=== PATIENT | male | born 1970 | race Two or more races ===

== ENCOUNTER 2020-04-14 15:17 | Emergency (ER) | payer OTHER ==
[~2020-04-14] VITALS: Ht 170.2 cm; Wt 90.7 kg
--- NOTE | 2020-04-14 15:21 | NUR ---
came inf or R hand pain and swelling s/p punching wooden stick, to ER bed 9, hooked to monitor, provided w warm blanket, awaiting mD turner.
--- NOTE | 2020-04-14 15:25 | NUR ---
dr Katz at bedside
--- NOTE | 2020-04-14 15:29 | NUR ---
BUSINESS ANALYSIS SPECIALIST AT BEDSIDE FOR XRAY.
[2020-04-14] MEDS ORDERED: ACETAMINOPHEN ES 500 MG TABLET PO ONE (15:30)
[2020-04-14] MEDS ORDERED: ACETAMINOPHEN ES 500 MG TABLET ONE (15:34)
--- NOTE | 2020-04-14 17:17 | NUR ---
Patient discharged to home in stable condition. Written and verbal after care instructions given. Patient verbalizes understanding of instruction.
--- NOTE | 2020-04-14 17:17 | NUR ---
SPLINTING DONE BY NEUROLOGY NURSE.
[2020-04-14 17:19] VITALS: BP 131/74
== END 2020-04-14 17:22 | disposition home or self-care (01) ==
LOC: ER 15:21
DX: S62.394A Other fracture of fourth metacarpal bone, right hand, initial encounter for closed fracture (principal); S62.396A Other fracture of fifth metacarpal bone, right hand, initial encounter for closed fracture; S60.221A Contusion of right hand, initial encounter; W22.8XXA Striking against or struck by other objects, initial encounter; Y93.71 Activity, boxing; Y92.89 Other specified places as the place of occurrence of the external cause; Y99.8 Other external cause status
CPT/HCPCS: 73110; 73130-TC

== ENCOUNTER 2021-02-04 16:38 | Emergency (ER) | payer OTHER ==
[~2021-02-04] VITALS: Ht 177.8 cm; Wt 77.1 kg
[2021-02-04 16:40] VITALS: BP 144/102
[2021-02-04] MEDS ORDERED: DIVA500T2 PO (17:13)
[2021-02-04] MEDS ORDERED: TRAZ150T75 PO (17:13)
[2021-02-04] MEDS ORDERED: ARIP15TA3 PO (17:13)
--- NOTE | 2021-02-04 17:24 | NUR ---
Patient given written and verbal discharge instructions. Patient verbalizes understanding of instructions. Patient is ambulatory with steady gait. Refuses offer of senior care placement. Patient given list of available shelters in surrounding area.
== END 2021-02-04 17:26 | disposition home or self-care (01) ==
LOC: ER 16:46
DX: Z76.0 Encounter for issue of repeat prescription (principal); Z59.0 Homelessness; Z79.899 Other long term (current) drug therapy

== ENCOUNTER 2022-07-15 11:14 | Emergency (ER) | payer OTHER ==
[~2022-07-15] VITALS: Ht 177.8 cm; Wt 90.7 kg
[~2022-07-15 11:14] MED LIST: ARIP15TA3 PO; DIVA500T2 PO; TRAZ150T75 PO
--- NOTE | 2022-07-15 11:30 | NUR ---
Patient came in to the er c/o +SI x 2 days, requesting voluntary admission to psych. On room air, breathing normally and unlabored. Kept comfortable, will continue to monitor accordingly.
--- NOTE | 2022-07-15 11:34 | NUR ---
covid swab collected and sent to lab.
[2022-07-15 11:56] LABS: BASOPHILS # (AUTO) 0.1 K/uL (0.0-0.2); BASOPHILS % (AUTO) 0.7 % (0.0-2.0); EOSINOPHILS % (AUTO) 0.8 % (0.0-6.0); HEMATOCRIT 51 % (39-51); HEMOGLOBIN 16.8 g/dL (13.5-17.5); LYMPHOCYTES # (AUTO) 2.1 K/uL (0.8-4.8); LYMPHOCYTES % (AUTO) 18.8 % (20.0-44.0); MEAN CORPUSCULAR HGB CONC 33 g/dl (31.0-36.0); MEAN CORPUSCULAR VOLUME 88 fL (80-96); MONOCYTES # (AUTO) 0.8 K/uL (0.1-1.30); MONOCYTES % (AUTO) 7.3 % (2.0-12.0); NEUTROPHILS # (AUTO) 8.2 K/uL (1.8-8.9); NEUTROPHILS % (AUTO) 72.4 % (43.0-81.0); PLATELET COUNT (AUTO) 377 K/uL (150-450); RED BLOOD CELL COUNT(AUTO) 5.77 MIL/uL (4.5-6.0); WHITE BLOOD COUNT (AUTO) 11.3 K/uL (4.3-11.0)
[2022-07-15 12:10] LABS: CALCIUM, SERUM 10.2 mg/dL (8.5-10.1); CARBON DIOXIDE 28 mmol/L (21-32); CHLORIDE 102 mmol/L (98-107); CREATININE 1.3 mg/dL (0.6-1.3); GLUCOSE 94 mg/dL (74-106); POTASSIUM 4.5 mmol/L (3.5-5.1); SODIUM SERUM 141 mmol/L (136-145); UREA NITROGEN, BLOOD 28 mg/dL (7-18)
[2022-07-15 12:16] LABS: ALANINE AMINOTRANSFERASE 41 U/L (12-78); ALBUMIN 4.9 g/dL (3.4-5.0); ALKALINE PHOSPHATASE 85 U/L (46-116); ASPARTATE AMINOTRANSFERASE 25 U/L (15-37); BILIRUBIN,DIRECT 0.4 mg/dL (0.0-0.2); BILIRUBIN,TOTAL 2.1 mg/dL (0.2-1.0); TOTAL PROTEIN, SERUM 9.3 g/dL (6.4-8.2)
[2022-07-15 12:41] LABS: ALCOHOL, BLOOD < 3 mg/dL (0-0)
[2022-07-15 13:06] LABS: ACETAMINOPHEN < 10 ug/ml (10-30)
--- NOTE | 2022-07-15 13:07 | NUR ---
PT UNABLE TO PROVIDE URINE SAMPLE AT THIS TIME; WATER AND SPECIMEN CUP PROVIDED TO PT
--- NOTE | 2022-07-15 14:23 | NUR ---
PT STILL UNABLE TO PROVIDE URINE; INFORMED PT THAT URINE SAMPLE IS NEEDED FOR PROCESSING OF CLINICALS. PT STATED THAT HE WOULD JUST LEAVE THE HOSPITAL AND GO TO [facility] INSTEAD. DR. ROWE MADE AWARE.
--- NOTE | 2022-07-15 14:45 | NUR ---
PT DENIES SI/HI AT THIS TIME AND WOULD LIKE TO GO TO [facility] INSTEAD. PT DISCHARGED FROM [facility] TODAY VOLUNTARILY. WRITTEN AND VERBAL INSTRUCTIONS PROVIDED. HOMELESS RESOURCES PROVIDED BUT REFUSED BY PT.
[2022-07-15 15:07] VITALS: BP 133/80
== END 2022-07-15 15:07 | disposition home or self-care (01) ==
LOC: ER 11:20
DX: R45.851 Suicidal ideations (principal); F32.A Depression, unspecified; Z91.51 Personal history of suicidal behavior; Z59.01 Sheltered homelessness; Z79.899 Other long term (current) drug therapy
CPT/HCPCS: 99285; 85025; 80048; 80076; 36415; 87426; 80143; 80320; C9803; G0480